=== PATIENT | female | born 1930 | race Caucasian/White ===

== ENCOUNTER 2019-09-19 07:15 | Inpatient (IN) | payer MEDICARE, OTHER ==
[~2019-09-19] VITALS: Ht 154.9 cm; Wt 70.0 kg
[2019-09-19] VITALS (12 sets, daily range): BP systolic 92–131; BP diastolic 52–71
--- NOTE | 2019-09-19 07:26 | NUR ---
[facility] DTR: [phone]
--- NOTE | 2019-09-19 07:27 | NUR ---
DR GALVAN AT THE BED SIDE
[2019-09-19] MEDS ORDERED: IV NS 0.9% 1,000 ML BAG IV ONE (07:30)
--- NOTE | 2019-09-19 07:35 | NUR ---
ASSUME PT CARE, RESTING IN BED. PT WAS BIBRA FROM HOME C/O CHEST PAIN SINCE 399 TODAY. SEEN BY ED PROVIDER MANDY. LAB DRAWN AND SENT. ON MONITOR.
[2019-09-19 07:41] LABS: BASOPHILS % (AUTO) 0.3 % (0.0-2.0); EOSINOPHILS % (AUTO) 1.2 % (0.0-6.0); HEMATOCRIT 22 % (33-45); HEMOGLOBIN 7.3 g/dL (11.5-14.8); LYMPHOCYTES # (AUTO) 1.1 /CMM (0.8-4.8); LYMPHOCYTES % (AUTO) 12.2 % (20.0-44.0); MEAN CORPUSCULAR HGB CONC 33 g/dl (31.0-36.0); MEAN CORPUSCULAR VOLUME 88 fL (82-100); MONOCYTES # (AUTO) 0.5 /CMM (0.1-1.30); MONOCYTES % (AUTO) 5.9 % (2.0-12.0); NEUTROPHILS # (AUTO) 7.2 /CMM (1.8-8.9); NEUTROPHILS % (AUTO) 80.4 % (43.0-81.0); PLATELET COUNT (AUTO) 248 /CMM (150-450); RED BLOOD CELL COUNT(AUTO) 2.52 MIL/uL (4.0-5.2); WHITE BLOOD COUNT (AUTO) 8.9 K/uL (4.3-11.0)
[2019-09-19 07:45] LABS: CALCIUM, SERUM 9.8 mg/dL (8.5-10.1); CARBON DIOXIDE 22 mmol/L (21-32); CHLORIDE 102 mmol/L (98-107); CREATININE 2.1 mg/dL (0.6-1.3); GLUCOSE 178 mg/dL (74-106); POTASSIUM 3.8 mmol/L (3.5-5.1); SODIUM SERUM 138 mmol/L (136-145); UREA NITROGEN, BLOOD 47 mg/dL (7-18)
[2019-09-19 07:56] LABS: ALANINE AMINOTRANSFERASE 12 U/L (12-78); ALBUMIN 3.5 g/dL (3.4-5.0); ALKALINE PHOSPHATASE 50 U/L (46-116); ASPARTATE AMINOTRANSFERASE 14 U/L (15-37); B-TYPE NATRIURETIC PEPTIDE 1453 PG/ML (0-125); BILIRUBIN,DIRECT 0.1 mg/dL (0.0-0.2); BILIRUBIN,TOTAL 0.2 mg/dL (0.2-1.0)
--- NOTE | 2019-09-19 08:10 | NUR ---
RADIOLOGY AT BEDSIDE FOR CHEST XRAY.
[2019-09-19] MEDS ORDERED: MORPHINE SULFATE INJ 2 MG/ML DISP.SYRIN ONE (08:15)
[2019-09-19] MEDS ORDERED: MORPHINE SULFATE INJ 2 MG/ML DISP.SYRIN IV ONE (08:30)
--- NOTE | 2019-09-19 08:35 | NUR ---
MOVE SHEET SUBMITTED AND CALLED FOR TELE BED AND EPIC CALLED.
[2019-09-19] MEDS ORDERED: TRAM50TA2 MT (08:46)
[2019-09-19] MEDS ORDERED: PANT40TA4 MT (08:46)
[2019-09-19] MEDS ORDERED: ISOS30TA6 MT (08:46)
[2019-09-19] MEDS ORDERED: DOCU250C21 MT (08:46)
[2019-09-19] MEDS ORDERED: LINA5TAB MT (08:46)
[2019-09-19] MEDS ORDERED: LOSA25TA27 MT (08:46)
[2019-09-19] MEDS ORDERED: BISA5TAB10 MT (08:46)
[2019-09-19] MEDS ORDERED: FERR325T6 MT (08:46)
[2019-09-19] MEDS ORDERED: ALEN70TA6 MT (08:46)
[2019-09-19] MEDS ORDERED: FLUT1DIS3 INH (08:46)
[2019-09-19] MEDS ORDERED: CALC-17 MT (08:46)
[2019-09-19] MEDS ORDERED: DIGO125T MT (08:46)
[2019-09-19] MEDS ORDERED: MEMA10TA56 MT (08:46)
[2019-09-19] MEDS ORDERED: ALPR0.5T8 MT (08:46)
[2019-09-19] MEDS ORDERED: FURO40TA5 MT (08:46)
[2019-09-19] MEDS ORDERED: SPIR25TA6 MT (08:46)
[2019-09-19] MEDS ORDERED: ATOR10TA MT (08:46)
[2019-09-19] MEDS ORDERED: DEXL60CA3 MT (08:46)
[2019-09-19] MEDS ORDERED: MEGE40TA5 MT (08:46)
[2019-09-19] MEDS ORDERED: CARV6.252 MT (08:46)
[2019-09-19] MEDS ORDERED: DULO30CA52 MT (08:46)
[2019-09-19] MEDS ORDERED: ASPI-1152 MT (08:46)
--- NOTE | 2019-09-19 08:52 | NUR ---
PT PROVIDED W/ PILLOW. APPEARS TO BE MORE COMFORTABLE. VITALS STABLE AND UPDATED.
--- NOTE | 2019-09-19 09:20 | NUR ---
PT SLEEPING, ON MONITOR W/ STABLE VITALS.
--- NOTE | 2019-09-19 10:21 | NUR ---
GOT BED 304-1
--- NOTE | 2019-09-19 11:03 | NUR ---
BEDSIDE REPORT GIVEN TO GASPER OSORIO. PT TRANSPORTED IN STABLE CONDITION.
--- NOTE | 2019-09-19 11:10 | NUR ---
Received patient via gurgarcia from ER
--- NOTE | 2019-09-19 11:30 | NUR ---
requested for Hebrew speaking hotel or motel room service supervisor, unable to collect info
--- NOTE | 2019-09-19 13:27 | NUR ---
patients granddaughter called, provided history of patient, (Cori [phone]) She is DNR/DNI Person to contact, and power of atty is her daughter Minal [phone]
[2019-09-19] MEDS ORDERED: ONDANSETRON HCL/PF 4 MG/2 ML VIAL IVP PRN (13:30)
[2019-09-19] MEDS ORDERED: Z GUARD REMEDY 2 OZ OINT TP PRN (13:30)
[2019-09-19] MEDS ORDERED: ACETAMINOPHEN 325 MG TABLET PO PRN (13:30)
[2019-09-19] MEDS ORDERED: HYDROCODONE/APAP 5/325MG 1 EACH TABLET PO PRN (13:30)
[2019-09-19] MEDS ORDERED: LORAZEPAM INJ 2 MG/ML VIAL IV PRN (16:00)
--- NOTE | 2019-09-19 16:15 | NUR ---
Lab called , informed about troponin level, DISTRIBUTION SUPERVISOR notified
--- NOTE | 2019-09-19 16:35 | NUR ---
Patient is screaming and sweating, saying she is dying, BP drops to 96/66 and O2 sat to 88% on 4L of O2
--- NOTE | 2019-09-19 17:17 | NUR ---
PATIENT TRANSFERRED TO [facility]-1 ICU OVERFLOW WITH GASPER OSORIO. VITALS SIGNS 131/63 HR 98 O2 97% ON 10L NON-REBREATHER, TEMP 97.9F. TELE MONITOR SINUS TACHY 90S-110S. PATIENT GIVEN TO DEVON KING AND CHARGE NURSE
--- NOTE | 2019-09-19 17:30 | NUR ---
gave report to DEVON Carrington for toni
--- NOTE | 2019-09-19 17:30 | NUR ---
RN OPENING NOTES RECEIVED PATIENT FROM [facility] NURSE. PATIENT IS VERY ANXIOUS AT THE MOMENT, A/O X3-4, CENTRAL AFRICAN SPEAKING ONLY. PATIENT IN PLACED ON NON REBREATHER MASK AT 15L, SATURATING WELL AT 95%. NO SIGNS OF RESPIRATORY DISTRESS NOTED. PLACED ON MONITOR FOR CONSTANT VITAL SIGNS MONITORING, INTERVAL SET TO 15MIN FOR BP CYCLE. VITAL SIGNS ARE STABLE AT THE MOMENT. THERE IS AN ORDER TO TRANSFUSE BLOOD, WILL OBTAIN CONSENT AND WAITING ON LAB TO PREPARE THE BLOOD. SAFETY IS MAINTAINED, CALL LIGHT WITHIN REACH, WILL CONTINUE TO MONITOR CLOSELY.
--- NOTE | 2019-09-19 17:50 | NUR ---
RN NOTE OBTAINED CONSENT FOR BLOOD TRANSFUSSION THROUGH TELEPHONE FROM DAUGHTER JESSICA. PATIENT WAS UNABLE TO SIGN DUE TO BEING VERY ANXIOUS. EXPLAINED THE PROCEDURE TO FAMILY AND PATIENT. BOTH AGREED. SAFETY MAINTAINED, CALL LIGHT WITHIN REACH, WILL CONTINUE TO MONITOR CLOSELY.
[2019-09-19] MEDS ORDERED: FUROSEMIDE 40 MG/4 ML VIAL IV ONE (18:00)
--- NOTE | 2019-09-19 18:31 | NUR ---
ASKED PHARMACY TO VERIFY LASIX. PENDING VERIFICATION PRIOR TO ADMINISTRATION.
--- NOTE | 2019-09-19 18:50 | NUR ---
HOLDING LOVENOX DUE TO PATIENT SBP UNDER 120. WILL ENDORSE TO PM NURSE Addendum: 09/19/19 at 1944 by KLARISSA CASTELAN RN HOLDING LASIX DUE TO PATIENT SBP UNDER 120. HOLDING PER DOSE ORDERED. WRONG MEDICATION CHARTED IN THE FIRST NOTE.
--- NOTE | 2019-09-19 19:20 | NUR ---
RN OPENING NOTES: RECEIVED PT A/OX3 IN BED RESTING COMFORTABLY. PATIENT ONLY SPEAKS ROMANSH. PATIENT IN NO S/SX OF ACUTE DISTRESS AT THIS TIME. NO SOB NOTED. PATIENT'S BREATHING IS EVEN AND UNLABORED. PATIENT IS ON 15 L OF OXYGEN VIA NON REBREATHER MASK; TOLERATING WELL AND SATURATING 100% UPON RECEIVED. PATIENT ON MONITORING READING SINUS RHYTHM HR IS @80S. NOTED IV SITE ON L HAND; NO S/S OF INFECTION BUT NOTED TO BE LEAKING. WILL FACILITATE CHANGE OF IV ACCESS. LINDSAY CATH IN PLACE, MODERATE URINE OUTPUT NOTED.SAFETY MEASURES HAVE BEEN PROVIDED AND IMPLEMENTED. PATIENT BED ALARM IS ON. HEAD OF BED ELEVATED. BED IS LOCKED, IN LOWEST POSITION AND SIDE RAILS UP. CALL LIGHT WITHIN REACH OF THE PATIENT. ISOLATION PRECAUTIONS IN PLACE. WILL CONTINUE TO MONITOR AND REASSESS FOR ANY CHANGES.
--- NOTE | 2019-09-19 20:00 | NUR ---
RN NOTES FACILITATED CHANGE OF IV ACCESS AND L HAND IV ACCESS HAS BEEN NOTED TO BE LEAKING AND NON PATENT. NEW IV LINE ON R HAND #20. PATIENT AND INTACT. RADIO EQUIPMENT INSTALLER MADE AWARE OF THIS.
--- NOTE | 2019-09-19 20:00 | NUR ---
RN NOTES LAB INFORMED RN THAT PT REFUSED BLOOD DRAW FOR TROPONIN. TRIED TO TALK TO PATIENT AND INFORMED RISK AND BENEFITS BUT STILL PATIENT REFUSED. EMERGENCY VETERINARIAN MADE INFORMED. WILL ALSO INFORM MD.
--- NOTE | 2019-09-19 20:10 | NUR ---
RN NOTES CALLED [facility] FOR [facility] TO INFORM ABOUT PT REFUSAL FOR BLOOD DRAW FOR TROPONIN. AWAITING FOR CALLBACK FROM [facility].
--- NOTE | 2019-09-19 20:38 | NUR ---
RN NOTES -CALLBACK RECEIVED FROM ONCALL DOCTORYAEL NP INFORMED HIM THAT PT REFUSED THE BLOOD DRAW FOR TROPONIN, HE ACKNOWLEDGED. ROUTE DELIVERY MANAGER MADE AWARE. -WAS ALSO ABLE TO SPEAK WITH PAT WEAVER AND INFORMED THE SAME. HE ACKNOWLEDGED.
[2019-09-19] MEDS: PANTOPRAZOLE 40 MG VIAL IV SCH (22:22)
[2019-09-20] VITALS (19 sets, daily range): BP systolic 94–154; BP diastolic 50–80
--- NOTE | 2019-09-20 01:00 | NUR ---
RN NOTES BLOOD TRANSFUSION ENDED AT 0100AM , NO BLOOD TRANSFUSION REACTION NOTED AND ALL VITAL SIGNS WNL. PT TOLERATED PROCEDURE AND STABLE.
[2019-09-20 06:05] LABS: APPEARANCE,URINE SL CLOUDY (CLEAR); BILIRUBIN,URINE NEGATIVE (NEGATIVE); BLOOD, URINE SMALL Ery/uL (NEGATIVE); COLOR,URINE YELLOW (YELLOW); KETONES,URINE NEGATIVE (NEGATIVE); LEUKOCYTE ESTERASE ,URINE SMALL (NEGATIVE); NITRITE, URINE POSITIVE (NEGATIVE); PROTEIN,URINE NEGATIVE (NEGATIVE); UGLUCOSE NEGATIVE (NEGATIVE); UROBILINOGEN,URINE 0.2 EU/dL (0.2)
[2019-09-20 06:10] LABS: BACTERIA,URINE Many /HPF (None Seen); SQUAMOUS EPITHELIAL CELL,UR Few /HPF (None Seen); WBC,URINE TOO NUMEROUS TO COUN /HPF (0-3)
[2019-09-20 06:37] LABS: BASOPHILS % (AUTO) 0.1 % (0.0-2.0); EOSINOPHILS % (AUTO) 0.3 % (0.0-6.0); HEMATOCRIT 26 % (33-45); HEMOGLOBIN 8.3 g/dL (11.5-14.8); LYMPHOCYTES # (AUTO) 1.5 /CMM (0.8-4.8); MEAN CORPUSCULAR HGB CONC 32 g/dl (31.0-36.0); MEAN CORPUSCULAR VOLUME 89 fL (82-100); MONOCYTES # (AUTO) 0.9 /CMM (0.1-1.30); MONOCYTES % (AUTO) 6.3 % (2.0-12.0); NEUTROPHILS # (AUTO) 11.5 /CMM (1.8-8.9); NEUTROPHILS % (AUTO) 82.3 % (43.0-81.0); PLATELET COUNT (AUTO) 244 /CMM (150-450); RED BLOOD CELL COUNT(AUTO) 2.94 MIL/uL (4.0-5.2); WHITE BLOOD COUNT (AUTO) 13.9 K/uL (4.3-11.0)
--- NOTE | 2019-09-20 06:41 | NUR ---
RN CLOSING NOTE: PATIENT REMAINS IN ROOM. NO SIGNS OF RESPIRATORY DISTRESS. SAFETY MEASURES IMPLEMENTED, BED IN LOWEST POSITION, LOCKED, SIDE RAILS UP, CALL LIGHT WITHIN REACH. ALL NEEDS AND ORDERS ADDRESSED DURING THE SHIFT. ALL DUE MEDS GIVEN ORDERED & SCHEDULED ; PATIENT TOLERATED WELL.PATIENT KEPT CLEAN AND COMFORTABLE WITHIN THE SHIFT. ENDORSED TO INCOMING SHIFT RN FOR CONTINUITY OF CARE.
[2019-09-20 06:48] LABS: ALANINE AMINOTRANSFERASE 33 U/L (12-78); ALBUMIN 3.3 g/dL (3.4-5.0); ALKALINE PHOSPHATASE 45 U/L (46-116); ASPARTATE AMINOTRANSFERASE 221 U/L (15-37); BILIRUBIN,TOTAL 0.3 mg/dL (0.2-1.0); CALCIUM, SERUM 8.4 mg/dL (8.5-10.1); CARBON DIOXIDE 22 mmol/L (21-32); CHLORIDE 105 mmol/L (98-107); CREATININE 1.4 mg/dL (0.6-1.3); GLUCOSE 132 mg/dL (74-106); MAGNESIUM 2.4 mg/dL (1.8-2.4); PHOSPHORUS 4.4 mg/dL (2.5-4.9); POTASSIUM 4.1 mmol/L (3.5-5.1); SODIUM SERUM 139 mmol/L (136-145); TOTAL PROTEIN, SERUM 6.8 g/dL (6.4-8.2); UREA NITROGEN, BLOOD 40 mg/dL (7-18)
--- NOTE | 2019-09-20 07:30 | NUR ---
RN OPENING NOTES RECEIVED PATIENT RESTING IN BED COMFORTABLY, AWAKE. PT IS AOX3, VERBAL, AND ON STRICT BED REST. SHE IS ON 15L OF OXYGEN VIA NON-REBREATHER, TOLERATING WELL SATING AT 100%. TELE MONITOR SHOWING SR. SKIN IS INTACT. IV SITE ON R HAND 20 G IS PATENT AND INTACT. SAFETY MEASURES HAVE BEEN IMPLEMENTED, CALL LIGHT IS WITHIN REACH, BED IS IN LOWEST AND LOCKED POSITION, SIDE RAILS UP X2, WILL CONTINUE TO MONITOR FOR ANY CHANGES.
--- NOTE | 2019-09-20 07:58 | NUR ---
RN NOTES TITRATED OXYGEN DOWN TO 8L VIA SIMPLE FACE MASK. PT SATING AT 100%, DENIES FEELING SOB AT THIS TIME. WILL CONTINUE TO MONITOR HOW SHE TOLERATES LOWER SUPPLEMENTAL O2
--- NOTE | 2019-09-20 08:20 | NUR ---
PLACED PT ON 5L O2 VIA NC WITH HUMIDIFIER KIT, PT SATING >95% WHILE EATING BREAKFAST. WILL CONT TO MONITOR
--- NOTE | 2019-09-20 09:14 | NUR ---
REPEAT TROPONIN LEVEL OF 84.991 RELAYED TO MD GRADY. NO NEW ORDERS AT THIS TIME, WILL CONTINUE TO MONITOR
[2019-09-20] MEDS: PANTOPRAZOLE 40 MG VIAL IV SCH ×2 (09:23→22:04)
[2019-09-20] MEDS: FUROSEMIDE 40 MG/4 ML VIAL IV SCH ×3 (09:23→16:42)
[2019-09-20 11:55] LABS: CHOLESTEROL 88 mg/dL (<200); HDL CHOLESTEROL 22 mg/dL (40-60); LDL 56 mg/dL (0-99); TRIGLYCERIDES 129 mg/dL (30-150)
--- NOTE | 2019-09-20 13:30 | NUR ---
RN NOTES SPOKE WITH JOLIE, PT DAUGHTER. UPDATED HER ON PLAN OF CARE. VERBALIZED UNDERSTANDING. WILL CONTINUE TO MONITOR
--- NOTE | 2019-09-20 17:30 | NUR ---
TELE/BOOKMOBILE CLERK/ASSESSMENT NOTES Received patient at 322-1 by bed along with belongings. Patient is A&O x 3, Macedonian speaking. Denies pain and discomfort at this time. Vital signs taken, remain stable. On 4L oxygen via NC, breathing even and non-labored. No SOB or respiratory distress noted. On tele monitor reading SR HR 78. No cardiac distress noted. Skin intact, no impairments noted. IV access noted on R hand #20 gauge, patent and intact, and flushing well. Sensation from all peripheral extremities noted. Fall precautions maintained. Will continue to monitor for any changes in condition. Addendum: 09/20/19 at 1806 by BEBETO CAST RN Moreno in place, draining yellow urine well.
--- NOTE | 2019-09-20 17:44 | NUR ---
RN NOTES PT HAS BEEN TRANSFERRED TO ROOM 322-1, TRANSFER REPORT GIVEN TO BEBETO OSORIO FOR JOSIE. PT FAMILY (JOLIE) MADE AWARE OF TRANSFER
--- NOTE | 2019-09-20 19:28 | NUR ---
TELE/RN CLOSING NOTES Patient resting in bed, A&O x 3. On 4L oxygen via NC, breathing even and non-labored. No SOB or respiratory distress noted. On tele monitor reading SR HR 80. No cardiac distress noted. No complaints of pain and discomfort at this time. IV access noted on R hand #20 gauge, patent and intact, and flushing well. Sensation from all peripheral extremities noted. Moreno catheter in place, draining yellow urine well, 100 cc out. Fall precautions maintained. Will endorse to fast food shift supervisor nurse.
--- NOTE | 2019-09-20 19:48 | NUR ---
RN OPENING NOTES RECEIVED PATIENT RESTING IN BED COMFORTABLY, AWAKE. PT IS AOX3, VERBAL, AND ON STRICT BED REST. TELE MONITOR SHOWING SR 70s - 80s. SKIN IS INTACT. IV SITE ON R HAND 20 G IS PATENT AND INTACT. SAFETY MEASURES HAVE BEEN IMPLEMENTED, CALL LIGHT IS WITHIN EASY REACH, BED IS IN LOWEST AND LOCKED POSITION, SIDE RAILS UP X2, WILL CONTINUE TO MONITOR ACCORDINGLY
[2019-09-21] VITALS (7 sets, daily range): BP systolic 102–125; BP diastolic 57–68
--- NOTE | 2019-09-21 06:38 | NUR ---
RN NOTES ALL NEEDS ATTENDED AND MET ABLE TO REST AND SLEPT AT INTERVALS, DENIES ANY PAIN AT THIS TIME, EASILY AROUSABLE. KEEP CLEAN WARM DRY AND COMFORTABLE. CALL LIGHT WITH IN EASY REACH, SAFETY MEASURES IN PLACE. WILL ENDORSE TO AM NURSE FOR CONTINUITY OF CARE.
[2019-09-21 07:49] LABS: ALBUMIN 3.4 g/dL (3.4-5.0); BILIRUBIN,TOTAL 0.5 mg/dL (0.2-1.0); CALCIUM, SERUM 8.7 mg/dL (8.5-10.1); CREATININE 1.2 mg/dL (0.6-1.3); MAGNESIUM 2.4 mg/dL (1.8-2.4); PHOSPHORUS 2.9 mg/dL (2.5-4.9); POTASSIUM 3.3 mmol/L (3.5-5.1); TOTAL PROTEIN, SERUM 7.2 g/dL (6.4-8.2)
[2019-09-21 07:54] LABS: BASOPHILS % (AUTO) 0.4 % (0.0-2.0); EOSINOPHILS % (AUTO) 1.3 % (0.0-6.0); HEMATOCRIT 27 % (33-45); HEMOGLOBIN 8.8 g/dL (11.5-14.8); LYMPHOCYTES # (AUTO) 1.6 /CMM (0.8-4.8); LYMPHOCYTES % (AUTO) 15.8 % (20.0-44.0); MEAN CORPUSCULAR HGB CONC 32 g/dl (31.0-36.0); MEAN CORPUSCULAR VOLUME 88 fL (82-100); MONOCYTES # (AUTO) 0.9 /CMM (0.1-1.30); MONOCYTES % (AUTO) 8.7 % (2.0-12.0); NEUTROPHILS # (AUTO) 7.3 /CMM (1.8-8.9); NEUTROPHILS % (AUTO) 73.8 % (43.0-81.0); PLATELET COUNT (AUTO) 257 /CMM (150-450); WHITE BLOOD COUNT (AUTO) 9.8 K/uL (4.3-11.0)
--- NOTE | 2019-09-21 08:00 | NUR ---
PAINTER ROUGH OPENING NOTES RECEIVED PATIENT AMBULATING OUT OF BED HEADING TO THE TOILET HOLDING ON TO THE PAINTER. HIGH FALL RISK.EXPLAINED WITH AN RN FREYA LATHE SPOTTER TO CALL FOR ASSISTANCE AND USE THE CALL LIGHT. PT IS AOX3, VERBAL, ON TELE MONITOR SHOWING SR 70s - 80s. SKIN IS INTACT. IV SITE ON R HAND 20 G IS PATENT AND INTACT. WITH LINDSAY CATHETER INTACT DRAINING SLIGHTLY DARK YELLOW URINE. PT MADE LARGE BROWNISH BLACK SOFT BM IN THE TOILET. ASSISTED ANTWON TO BED AFTER GOOD PERICARE RENDERED. ABLE TO MAKE SMALL SLOW STEPS. NO SOB NOTED AND DENIES SOB WELL-ON ROOM AIR AND DURING AMBULATION. O2 SAT 100%. SAFETY MEASURES HAVE BEEN IMPLEMENTED, CALL LIGHT IS WITHIN EASY REACH, BED IS IN LOWEST AND LOCKED POSITION, SIDE RAILS UP X2, WILL CONTINUE TO MONITOR ACCORDINGLY
[2019-09-21] MEDS: PANTOPRAZOLE 40 MG VIAL IV SCH ×2 (08:19→20:08)
[2019-09-21] MEDS ORDERED: POTASSIUM CHLORIDE 20 MEQ TAB.PRT.SR PO ONE (09:30)
[2019-09-21 16:52] LABS: OCCULT BLOOD STOOL POSITIVE (NEGATIVE)
[2019-09-21] MEDS: DOCUSATE SODIUM 100 MG CAPSULE PO SCH (17:00)
--- NOTE | 2019-09-21 17:14 | NUR ---
PT GOT SO IRRITATED WITH HER LINDSAY CATHETER AND WANTS IT REMOVED INSPITE OF EXPLAINING ITS RISKS AND BENEFITS.PT KEEPS AMBULATING WITH ASSIST TO THE TOILET 3X DURING THE SHIFT. HELD COLACE DUE TO HAVING LOOSE SOFT STOOL 2X DURING THE SHIFT.REMOVED LINDSAY CATHETER WITH 450 ML CLEAR YELLOW URINE OUTPUT AND PT FELT SO RELIEVED.
--- NOTE | 2019-09-21 20:00 | NUR ---
ELECTRICAL LOGGING OPERATOR OPENING NOTE: Received patient in bed awake and alert. Patient denies pain or discomfort. No signs of distress noted. Patient on room air, O2 sat 97%. No SOB. Breathing unlabored and equal. External monitoring noted. Patient is sinus rhythm. IV access on right forearm noted; 22 gauge. It is patent, no redness, or infiltration. Safety precaution in place; bed is locked, side rails x2 are up, bed alarm is on, and call light is within reach. Will continue plan of care.
--- NOTE | 2019-09-21 20:30 | NUR ---
Noted patient not on Hayden Catheter. Asked patient if it would be okay to insert hayden catheter. Patient refused. Educated patient on risk and benefits but patient still refused. Patient ambulates to the restroom with assistance. Will use hat to measure output.
[2019-09-22] VITALS: BP 117/65
[2019-09-22 04:00] VITALS: BP 119/64
--- NOTE | 2019-09-22 07:00 | NUR ---
DISTRICT MANAGER MAJOR ACCOUNTS SALES OPENING NOTE: Patient in bed sleeping comfortably. Patient shows no signs of pain or discomfort. No signs of distress noted. No SOB. Breathing unlabored and equal. External monitoring sinus rhythm. Safety precaution in place; bed is locked, side rails x2 are up, bed alarm is on, and call light is within reach. Will endorse to next shift.
[2019-09-22 08:00] VITALS: BP 118/67
[2019-09-22 08:03] LABS: BASOPHILS # (AUTO) 0.1 /CMM (0.0-0.2); BASOPHILS % (AUTO) 0.7 % (0.0-2.0); HEMATOCRIT 27 % (33-45); HEMOGLOBIN 8.7 g/dL (11.5-14.8); LYMPHOCYTES # (AUTO) 1.5 /CMM (0.8-4.8); LYMPHOCYTES % (AUTO) 19.3 % (20.0-44.0); MEAN CORPUSCULAR HGB CONC 32 g/dl (31.0-36.0); MEAN CORPUSCULAR VOLUME 88 fL (82-100); MONOCYTES # (AUTO) 0.7 /CMM (0.1-1.30); MONOCYTES % (AUTO) 9.1 % (2.0-12.0); NEUTROPHILS # (AUTO) 5.2 /CMM (1.8-8.9); NEUTROPHILS % (AUTO) 68.9 % (43.0-81.0); PLATELET COUNT (AUTO) 266 /CMM (150-450); RED BLOOD CELL COUNT(AUTO) 3.03 MIL/uL (4.0-5.2); WHITE BLOOD COUNT (AUTO) 7.5 K/uL (4.3-11.0)
[2019-09-22] MEDS: DOCUSATE SODIUM 100 MG CAPSULE PO SCH ×2 (08:27→17:18)
[2019-09-22] MEDS: PANTOPRAZOLE 40 MG VIAL IV SCH ×2 (08:27→21:13)
[2019-09-22 09:24] LABS: CALCIUM, SERUM 8.2 mg/dL (8.5-10.1); PHOSPHORUS 2.3 mg/dL (2.5-4.9); POTASSIUM 3.7 mmol/L (3.5-5.1)
[2019-09-22] MEDS ORDERED: NEUTRA PHOS 1 POWD.PACKET PO ONE (13:00)
[2019-09-22] MEDS: SOD FERRIC GLUC 125 MG in IV NS 0.9% 100 ML IV SCH (13:53)
[2019-09-22 16:00] VITALS: BP 126/69
--- NOTE | 2019-09-22 19:05 | NUR ---
RN NOTES: RECEIVED AWAKE ON BED ON SEMI FOWLERS POSITION,A/OX2,TONGAN SPEAKING ONLY, ABLE TO GO AMBULATE TO THE BATHROOM USING FWW WITH ASSIST,NON LABORED BREATHING ON ROOM AIR SPO2-98%, NO COMPLAINTS OF PAIN AND DISCOMFORT, ORIENTED TO UNIT AND STAFF, PER MORNING/RN FOR ENDOSCOPY IN THE MORNING NO DEFINITE TIME, ALL CONSENTS WERE SIGNED,FOR NPO AT 12 MN, RFA G#22 PATENT, ORIENTED TO UNIT AND STAFF, FALL,SAFETY AND ASPIRATION PRECAUTION OBSERVED, BED LOW AND LOCKED, CALL LIGHT WITHIN EASY REACH.
[2019-09-22 20:00] VITALS: BP 121/69
--- NOTE | 2019-09-22 23:04 | NUR ---
RN NOTES: -REMINDED TO BE NPO AT 12 MN FOR ENDOSCOPY TOMORROW.KEPT CALL LIGHT WITHIN EASY REACH.
[2019-09-23 06:53] LABS: CALCIUM, SERUM 8.3 mg/dL (8.5-10.1); MAGNESIUM 2.1 mg/dL (1.8-2.4); PHOSPHORUS 3.2 mg/dL (2.5-4.9); POTASSIUM 3.1 mmol/L (3.5-5.1)
--- NOTE | 2019-09-23 06:53 | NUR ---
RN NOTES: NO COMPLAINTS IN THE NIGHT, NO PAIN OR DISCOMFORT, NEEDS ANTICIPATED AND ATTENDED, ABLE TO SLEEP WELL, KEPT NPO, PRE-OP CHECKLIST STARTED; FOR BLOOD TEST THIS MORNING, TO F/U TIME OF EGD PROCEDURE.REMAINS AFEBRILE, NO SIGN OF BLEEDING. NON LABORED BREATHING. ENDORSED FOR CONTINUITY OF CARE.
[2019-09-23 06:54] LABS: BASOPHILS # (AUTO) 0.1 /CMM (0.0-0.2); BASOPHILS % (AUTO) 0.8 % (0.0-2.0); EOSINOPHILS % (AUTO) 4.6 % (0.0-6.0); HEMATOCRIT 26 % (33-45); HEMOGLOBIN 8.4 g/dL (11.5-14.8); LYMPHOCYTES # (AUTO) 1.2 /CMM (0.8-4.8); LYMPHOCYTES % (AUTO) 16.8 % (20.0-44.0); MEAN CORPUSCULAR HGB CONC 33 g/dl (31.0-36.0); MEAN CORPUSCULAR VOLUME 88 fL (82-100); MONOCYTES # (AUTO) 0.6 /CMM (0.1-1.30); MONOCYTES % (AUTO) 8.7 % (2.0-12.0); NEUTROPHILS # (AUTO) 4.9 /CMM (1.8-8.9); NEUTROPHILS % (AUTO) 69.1 % (43.0-81.0); PLATELET COUNT (AUTO) 254 /CMM (150-450); RED BLOOD CELL COUNT(AUTO) 2.92 MIL/uL (4.0-5.2); WHITE BLOOD COUNT (AUTO) 7.1 K/uL (4.3-11.0)
--- NOTE | 2019-09-23 07:30 | NUR ---
RN Opening note Received patient in bed, non verbal, able to responds physical stimuli. Denied pain or distress, skin is warm to touch clean/dry, p/s peg on 09/21, intact G tube site, no active bleeding. Respiratory even and unlabored in room air, no distress observed. Keep bed in locked with elevated HOB for secure airway and aspiration precaution. Call light within reach, will continue to monitor
[2019-09-23 08:00] VITALS: BP 99/53
[2019-09-23] MEDS: DOCUSATE SODIUM 100 MG CAPSULE PO SCH ×2 (08:34→16:21)
[2019-09-23] MEDS: PANTOPRAZOLE 40 MG VIAL IV SCH ×2 (08:34→21:13)
[2019-09-23] MEDS: POTASSIUM CL. PREMIX PERIPHER. 50 ML IV SCH ×4 (10:57→13:34)
--- NOTE | 2019-09-23 13:30 | NUR ---
Patient cancelled EGD due to troponin resul was high. Dr. Wall made aware, will resume diet.
--- NOTE | 2019-09-23 15:00 | NUR ---
Patient has potassium IV order x 4 bags but c/o IV site burning pain, obtained potassium [address] Wall, will hold rest of potassium IV.
[2019-09-23] MEDS ORDERED: POTASSIUM CHLORIDE 20 MEQ TAB.PRT.SR PO ONE (15:30)
[2019-09-23 16:00] VITALS: BP 106/61
[2019-09-23] MEDS: SOD FERRIC GLUC 125 MG in IV NS 0.9% 100 ML IV SCH (16:20)
--- NOTE | 2019-09-23 18:30 | NUR ---
RN Closing note Patient in bed, finished dinner plate. Does no c/o pain or distress, resumed diet, skin is warm to touch, kept clean/dry, intact new IV site. Respiratory even and unlabored in kenny air. Keep bed in locked with elevated HOB for ensure airway and aspiration precaution. Call light within reach, will endorse caustic cresylate shift superintendent.
--- NOTE | 2019-09-23 19:05 | NUR ---
rn ms opening notes received patient in bed awake alert and oriented x2, respirations even and unlabored with equal rise and fall of chest, denies any pain or discomfort at this time, iv site to left wrist #22g intact and patent , no redness, no infiltration present, on clear liquid diet, oriented to staff and call light and kept within reach, safety precautions in place, low bed and locked, bed alarm in place, assisted to bed side commode and back to bed, repositioned,all needs met at this time, will continue to monitor and attend to needs.
[2019-09-23 20:00] VITALS: BP 104/50
--- NOTE | 2019-09-24 06:34 | NUR ---
rn ms closing notes patient in bed sleeping easily arousable , alert and oriented x2, respirations even and unlabored with equal rise and fall of chest, denies any pain or discomfort at this time, able to make needs known, iv site to left wrist #22g intact and patent , no redness, no infiltration present, on clear liquid diet, call light kept within reach, safety precautions in place, low bed and locked, bed alarm in place, assisted to bed side commode and back to bed, repositioned,all needs met at this time, will continue to monitor and attend to needs and will endorse to next shift.
--- NOTE | 2019-09-24 07:30 | NUR ---
RN OPEN NOTES PATIENT IS A/O X 1. CALM AND COOPERATIVE WITH NO SIGNS OF DISTRESS ON 4L NASAL CANNULA. NO COMPLAINTS OF PAIN AT THE MOMENT. IV L WRIST #22G. SAFETY MEASURES ARE APPLIED, BED IS IN LOWEST LOCKED POSITION WITH SIDE RAILS UP X2 FOR SAFETY. CALL LIGHT IS WITHIN REACH. WILL CONTINUE TO MONITOR.
[2019-09-24 07:52] LABS: CALCIUM, SERUM 8.5 mg/dL (8.5-10.1); CREATININE 1.2 mg/dL (0.6-1.3); POTASSIUM 3.6 mmol/L (3.5-5.1)
[2019-09-24 08:01] VITALS: BP_SYST 100; BP_SYST 116; BP_SYST 128; BP_DIAS 48; BP_DIAS 68
[2019-09-24] MEDS: DOCUSATE SODIUM 100 MG CAPSULE PO SCH ×2 (08:52→17:21)
[2019-09-24] MEDS: PANTOPRAZOLE 40 MG VIAL IV SCH ×2 (08:52→20:16)
[2019-09-24] MEDS ORDERED: NITROGLYCERIN 0.4 MG/TAB BOTTLE SL ONE (11:00)
[2019-09-24] MEDS ORDERED: IOHEXOL-350 100 ML VIAL IV ONE (11:51)
[2019-09-24] MEDS ORDERED: IV NS 0.9% 250 ML IV ONE (11:51)
[2019-09-24] MEDS ORDERED: METOPROLOL TARTRATE INJ 5 MG/5 ML AMPUL ONE (12:08)
[2019-09-24] MEDS: METOPROLOL TARTRATE INJ 5 MG/5 ML AMPUL IVP PRN ×3 (12:37→12:47)
[2019-09-24] MEDS ORDERED: CEFTRIAXONE 1 G in IV D5W 50 ML IV SCH (15:00)
--- NOTE | 2019-09-24 15:00 | NUR ---
RN NOTES DR. WEAVER ORDERED ADDITIONAL SUPPLEMENTS ENSURE CLEAR TID. ORDERS NOTED AND CARRIED OUT.
[2019-09-24] MEDS: SOD FERRIC GLUC 125 MG in IV NS 0.9% 100 ML IV SCH (15:32)
[2019-09-24 16:21] VITALS: BP 98/54
--- NOTE | 2019-09-24 19:30 | NUR ---
RN CLOSING NOTES PATIENT AWAKE IN BED AT THIS TIME. PATIENT REMAINED STABLE THROUGH OUT SHIFT. PATIENT KEPT CLEAN AND DRY. ALL NEEDS , CARE , TREATMENT AND MEDICATIONS ADMINISTERED ANTICIPATED PER ORDER. SAFETY MEASURES ARE APPLIED, BED IS IN LOWEST LOCKED POSITION WITH SIDE RAILS UP X2 FOR SAFETY. CALL LIGHT IS WITHIN REACH. WILL ENDORSE TO THE MANAGER AUTOMOTIVE NURSE FOR CONTINUITY OF CARE.
[2019-09-24 20:00] VITALS: BP 90/50
--- NOTE | 2019-09-24 20:00 | NUR ---
MS RN OPENING NOTE: Patient in bed awake and alert, watching TV. Patient is in no sing of distress. Patient denies pain or discomfort. On Oxygen 4L nasal canula. Patient tolerating oxygen. No SOB, breathing equal and unlabored at this time. Safety precaution in place; bed locked, alarm on, side rails x2 are up, and call light is within reach. Will continue plan of care.
[2019-09-24 20:08] VITALS: BP 90/50
--- NOTE | 2019-09-25 00:30 | NUR ---
MS RN NOTE: Found patient with cold sweat and SOB. O2 Sat 88 at 2L. Increased O2 to 5L. O2 sat went up to 89-92. Patient still had difficuly breathing. RT increased O2 to 15L on non-rebreather mask. O2 Sat above 95%. Notified MD. Per MD, order stat ABG. Notified MD of ABG results and was told that patient needed to be on bipap. RT brought bipap to room. Now patient is resting comfortably with O2 sat at 100%. No SOB/ No S/S of distress noted. Charge nurse is at the bedside.
[2019-09-25] MEDS ORDERED: BUMETANIDE INJ 0.25 MG/ML VIAL IV STA (01:18)
[2019-09-25] MEDS ORDERED: BUMETANIDE INJ 8 MG in IV NS 0.9% 48 ML IV STA (01:18)
[2019-09-25] MEDS ORDERED: BUMETANIDE INJ 0.25 MG/ML VIAL ONE ×2 (01:46→01:58)
[2019-09-25 03:00] VITALS: BP 112/57
[2019-09-25 03:56] VITALS: BP 112/57
--- NOTE | 2019-09-25 04:00 | NUR ---
MS RN NOTE: Patient removed bipap. Refused for me to put it back on. Educated and explained risk and benefits. Patient still refused.
--- NOTE | 2019-09-25 04:22 | NUR ---
MS RN NOTE: Notified doctor we only had quantity of 4 Bumex Inj 1mg/mL. MD order 1mg/4ml 4MG in NS 0.9% 24ML. Total 40mL. Read order back and carried out.
[2019-09-25] MEDS ORDERED: BUMETANIDE INJ 4 MG in IV NS 0.9% 24 ML IV ONE (04:30)
--- NOTE | 2019-09-25 04:50 | NUR ---
MS RN NOTE: Patient allowed me to put bipap back on.
--- NOTE | 2019-09-25 05:00 | NUR ---
MS RN NOTE: Patient removed bipap. Refused for me to put it back on. Educated and explained risk and benefits. Patient still refused.
--- NOTE | 2019-09-25 05:03 | NUR ---
MS RN NOTE: Put patient on 5L nasal canula. O2 sat 94%. Will continue to monitor.
[2019-09-25 06:33] LABS: ABG BASE EXCESS -12.7 mmol/L; ABG OXYGEN SATURATION 98.7 % (92.0-98.5); ABG PCO2 48.4 mmHg (35.0-45.0); ABG PH 7.134 (7.350-7.450); AaDO2 491.6 mmHg; COHb 0.3 % (0.5-1.5); MetHb 0.1 % (0.0-1.5); O2Hb 98.3 % (94.0-97.0); SITE, ABG Right Radial
--- NOTE | 2019-09-25 06:53 | NUR ---
MS RN OPENING NOTE: Patient in bed awake and alert. Patient is in no sing of distress at this time. On Oxygen 4L nasal canula. Patient tolerating oxygen. No SOB, breathing equal and unlabored at this time. Safety precaution in place; bed locked, alarm on, side rails x2 are up, and call light is within reach. Will endorse to next shift.
[2019-09-25 08:00] VITALS: BP 106/65
--- NOTE | 2019-09-25 08:00 | NUR ---
RN NOTES RECEIVED PATIENT IN THE BED A/O X1/2 WITH CONFUSION. PATIENT MAURITANIAN SPEAKER, HAS NO ACUTE RESPIRATORY DISTRESS, V/S STABLE, PATIENT TOLERATED BREAKFAST WELL. USING BEDSIDE COMMODE. IV ACCESS ON LEFT WRIST INTACT. ADMINISTERED SCHEDULED MEDICATION. CALL LIGHT WITHIN TO REACH. WAS COMPLAINING OF PAIN BILATERAL LOWER EXTREMITIES.
[2019-09-25 08:23] LABS: BASOPHILS % (AUTO) 0.2 % (0.0-2.0); EOSINOPHILS % (AUTO) 1.1 % (0.0-6.0); HEMATOCRIT 31 % (33-45); HEMOGLOBIN 9.6 g/dL (11.5-14.8); LYMPHOCYTES # (AUTO) 1.1 /CMM (0.8-4.8); LYMPHOCYTES % (AUTO) 11.3 % (20.0-44.0); MEAN CORPUSCULAR HGB CONC 31 g/dl (31.0-36.0); MEAN CORPUSCULAR VOLUME 90 fL (82-100); MONOCYTES # (AUTO) 0.6 /CMM (0.1-1.30); MONOCYTES % (AUTO) 5.9 % (2.0-12.0); NEUTROPHILS # (AUTO) 7.9 /CMM (1.8-8.9); NEUTROPHILS % (AUTO) 81.5 % (43.0-81.0); PLATELET COUNT (AUTO) 295 /CMM (150-450); RED BLOOD CELL COUNT(AUTO) 3.43 MIL/uL (4.0-5.2); WHITE BLOOD COUNT (AUTO) 9.6 K/uL (4.3-11.0)
[2019-09-25 08:31] LABS: CALCIUM, SERUM 8.8 mg/dL (8.5-10.1); CREATININE 1.2 mg/dL (0.6-1.3); MAGNESIUM 2.1 mg/dL (1.8-2.4); PHOSPHORUS 4.1 mg/dL (2.5-4.9)
--- NOTE | 2019-09-25 08:53 | NUR ---
RN NOTES RT WITH THE PATIENT FOR BLOOD GAS,
[2019-09-25] MEDS: ENSURE ENLIVE 237 ML LIQUID (VANILLA) PO SCH ×3 (08:55→16:47)
--- NOTE | 2019-09-25 09:15 | NUR ---
RN NOTES BLOOD GAS RESULT GET WNL. PATIENT HAS NO ACUTE RESPIRATORY DISTRESS.
[2019-09-25] MEDS: DOCUSATE SODIUM 100 MG CAPSULE PO SCH ×2 (10:35→16:48)
[2019-09-25] MEDS: PANTOPRAZOLE 40 MG VIAL IV SCH ×2 (10:36→20:39)
[2019-09-25] MEDS: FUROSEMIDE 40 MG/4 ML VIAL IV SCH ×3 (10:37→16:48)
--- NOTE | 2019-09-25 12:00 | NUR ---
RN NOTES SEEN PATIENT BY HOSPITALIST NEW ORDER EGD, PATIENT DNR/DRI, WILL FOLLOW FAMILY FOR PROCEDURE CONSENT.
[2019-09-25] MEDS ORDERED: CEFEPIME 1 GM in IV D5W 50 ML IV SCH (14:00)
[2019-09-25 14:04] LABS: ABG BASE EXCESS -6.1 mmol/L; ABG OXYGEN SATURATION 97.6 % (92.0-98.5); ABG PCO2 24.4 mmHg (35.0-45.0); ABG PO2 98.9 mmHg (75.0-100.0); COHb 0.1 % (0.5-1.5); MetHb 0.3 % (0.0-1.5); O2Hb 97.2 % (94.0-97.0); SITE, ABG Right Brachial
[2019-09-25] MEDS: LEVOFLOXACIN (500MG) 500 MG TABLET PO SCH (15:19)
[2019-09-25] MEDS: SOD FERRIC GLUC 125 MG in IV NS 0.9% 100 ML IV SCH (15:20)
[2019-09-25 16:00] VITALS: BP 110/65
[2019-09-25] MEDS: CEFEPIME 2 GM in IV D5W 100 ML IV SCH (16:46)
--- NOTE | 2019-09-25 18:30 | NUR ---
rn notes patient in th bed stable refused pain, on o2-2l nc, no sob at this time. administered scheduled medication, v/s stable. call light within to reach. endorsed oncoming nurse follow plan of care.
--- NOTE | 2019-09-25 19:30 | NUR ---
MS RN NOTES PATIENT IN BED, AWAKE, ALERT AND ORIENTED X 1-2. BREATHING EVEN AND UNLABORED ON 4L NC. SHOWS NO SIGNS OF ACUTE RESPIRATORY DISTRESS, NO ACUTE PAIN. IV ON L WRIST 22G ITS CLEAN DRY AND INTACT. SHOWS NO SIGNS INFILTRATION, NO REDNESS. SAFETY PRECAUTIONS IN PLACE. BED IN LOWEST POSITION, LOCKED, AND CALL LIGHT KEPT WITHIN REACH. WILL CONTINUE TO MONITOR.
--- NOTE | 2019-09-25 19:50 | NUR ---
MS RN NOTES DR. REED SAW PT IN EVENING. NO ORDERS FOR EGD. PER PREVIOUS CONSULTATION ON 09/22. 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 HIGH TROPONIN LEVEL WITH NON-ST ELEVATION CO, RECOMMEND HOLDING OFF ANY ENDOSCOPIC PROCEDURE." WILL CONTINUE TO MONITOR.
[2019-09-25 20:00] VITALS: BP 96/58
--- NOTE | 2019-09-26 06:35 | NUR ---
MS RN NOTES PATIENT IN BED, ASLEEP ALERT AND ORIENTED X 1-2. BREATHING EVEN AND UNLABORED ON 4L NC. SHOWS NO SIGNS OF ACUTE RESPIRATORY DISTRESS, NO ACUTE PAIN. IV ON L WRIST 22G ITS CLEAN DRY AND INTACT. SHOWS NO SIGNS INFILTRATION, NO REDNESS. ALL DUE MEDICATIONS GIVEN. SAFETY PRECAUTIONS IN PLACE. BED IN LOWEST POSITION, LOCKED, AND CALL LIGHT KEPT WITHIN REACH. WILL ENDORSE TO ONCOMING NURSE.
--- NOTE | 2019-09-26 07:47 | NUR ---
MS RN NOTES PATIENT RECEIVED IN BED SLEEPING, EASILY AWAKEN BY LIGHT TOUCH AND NAME. ALERT AND ORIENTED X 1-2, HEBREW/ NEPALESE SPEAKING. ON NASAL CANNULA, 4L, TOLERATING OXYGEN WITH NO SIGNS OF RESPIRATORY DISTRESS, WITH EVEN NON-LABORED BREATHING, AND NO SOB NOTED. PATIENT PRESENTS NO SIGNS OF PAIN OR DISCOMFORT. PATIENT SKIN WARM AND DRY TO TOUCH. IV ACCESS INTACT AND PATENT. SAFETY PRECAUTIONS IN PLACE WITH BED IN THE LOWEST POSITION, BED LOCKED, BILATERAL SIDE RAILS UP, AND CALL LIGHT WITHIN EASY REACH OF THE PATIENT. WILL CONTINUE TO MONITOR PATIENT.
[2019-09-26 08:00] VITALS: BP 91/50
[2019-09-26 08:09] LABS: BASOPHILS # (AUTO) 0.1 /CMM (0.0-0.2); BASOPHILS % (AUTO) 0.7 % (0.0-2.0); EOSINOPHILS % (AUTO) 4.8 % (0.0-6.0); HEMATOCRIT 28 % (33-45); LYMPHOCYTES # (AUTO) 1.1 /CMM (0.8-4.8); LYMPHOCYTES % (AUTO) 15.4 % (20.0-44.0); MEAN CORPUSCULAR HGB CONC 32 g/dl (31.0-36.0); MEAN CORPUSCULAR VOLUME 89 fL (82-100); MONOCYTES # (AUTO) 0.6 /CMM (0.1-1.30); MONOCYTES % (AUTO) 8.8 % (2.0-12.0); NEUTROPHILS # (AUTO) 5.1 /CMM (1.8-8.9); NEUTROPHILS % (AUTO) 70.3 % (43.0-81.0); PLATELET COUNT (AUTO) 268 /CMM (150-450); RED BLOOD CELL COUNT(AUTO) 3.17 MIL/uL (4.0-5.2); WHITE BLOOD COUNT (AUTO) 7.2 K/uL (4.3-11.0)
[2019-09-26 08:12] LABS: ALBUMIN 2.9 g/dL (3.4-5.0); BILIRUBIN,TOTAL 0.5 mg/dL (0.2-1.0); CALCIUM, SERUM 8.8 mg/dL (8.5-10.1); CREATININE 1.3 mg/dL (0.6-1.3); MAGNESIUM 1.7 mg/dL (1.8-2.4); PHOSPHORUS 4.5 mg/dL (2.5-4.9); POTASSIUM 3.2 mmol/L (3.5-5.1); TOTAL PROTEIN, SERUM 6.7 g/dL (6.4-8.2)
[2019-09-26] MEDS: PANTOPRAZOLE 40 MG VIAL IV SCH ×2 (09:01→20:37)
[2019-09-26] MEDS: ENSURE ENLIVE 237 ML LIQUID (VANILLA) PO SCH ×2 (09:01→13:11)
[2019-09-26] MEDS: DOCUSATE SODIUM 100 MG CAPSULE PO SCH ×2 (09:01→16:01)
--- NOTE | 2019-09-26 09:55 | NUR ---
MS RN NOTES SPOKE WITH POLI GUTIÉRREZ NP, AWAITING FOR CASE MANAGEMENT TO FOLLOW UP WITH FAMILY REGARDING PLAN OF CARE. POSSIBLE DIETARY CHANGE/ADVANCING DIET;PER POLI DE NP, OKAY TO GIVE ENSURE TO PATIENT. WILL CONTINUE TO MONITOR PATIENT.
[2019-09-26] MEDS: POTASSIUM CHLORIDE 20 MEQ TAB.PRT.SR PO SCH ×3 (10:24→12:43)
[2019-09-26] MEDS: Magnesium 1GM/D5W 100ML PREMIX 100 ML IV SCH ×2 (10:38→11:44)
[2019-09-26] MEDS: SOD FERRIC GLUC 125 MG in IV NS 0.9% 100 ML IV SCH (14:19)
[2019-09-26] MEDS: LEVOFLOXACIN (500MG) 500 MG TABLET PO SCH (15:57)
[2019-09-26] MEDS: CEFEPIME 2 GM in IV D5W 100 ML IV SCH (15:57)
[2019-09-26 16:00] VITALS: BP 114/67
--- NOTE | 2019-09-26 19:13 | NUR ---
MS RN NOTES PATIENT IN BED RESTING COMFORTABLY WATCHING TV. ALERT AND ORIENTED X 2, BELARUSIAN/ BERMUDIAN SPEAKING. ON NASAL CANNULA, 4L, TOLERATING OXYGEN WITH NO SIGNS OF RESPIRATORY DISTRESS, WITH EVEN NON-LABORED BREATHING, AND NO SOB NOTED. PATIENT PRESENTS NO SIGNS OF PAIN OR DISCOMFORT. PATIENT SKIN KEPT CLEAN, WARM AND DRY TO TOUCH. IV ACCESS INTACT AND PATENT. SAFETY PRECAUTIONS IN PLACE WITH BED IN THE LOWEST POSITION, BED LOCKED, BILATERAL SIDE RAILS UP, AND CALL LIGHT WITHIN EASY REACH OF THE PATIENT. WILL ENDORSE PLAN OF CARE TO UPCOMING NURSE.
--- NOTE | 2019-09-26 19:46 | NUR ---
RN NOTES RECEIVED PATIENT IN BED, AWAKE, ALERT AND ORIENTED X 1-2. BREATHING EVEN AND UNLABORED ON 4L NC. NO SIGNS OF ACUTE RESPIRATORY DISTRESS, NO ACUTE PAIN NOTED AT THIS TIME. IV ON L WRIST 22G ITS CLEAN DRY AND INTACT. SHOWS NO SIGNS INFILTRATION, NO REDNESS. SAFETY PRECAUTIONS IN PLACE. BED IN LOWEST POSITION, LOCKED, AND CALL LIGHT KEPT WITHIN EASY REACH. ASPIRATION PRECAUTION EMPHASIZED. WILL CONTINUE TO MONITOR ACCORDINGLY.
[2019-09-26 20:00] VITALS: BP 98/56
[2019-09-26 20:39] VITALS: BP 98/56
--- NOTE | 2019-09-27 06:23 | NUR ---
RN NOTES ALL NEEDS ATTENDED AND MET, ABLE TO REST AND SLEPT AT INTERVALS, REPOSITIONED FOR COMFORT. KEPT CLEAN WARM DRY AND COMFORTABLE, CALL LIGHT WITHIN EASY REACH. ASPIRATION PRECAUTION EMPHASIZED, SAFETY MEASURES IN PLACE. ALL NEEDS ANTICIPATED, WILL ENDORSE TO AM NURSE FOR CONTINUITY OF CARE.
[2019-09-27 07:29] LABS: BASOPHILS % (AUTO) 0.8 % (0.0-2.0); CALCIUM, SERUM 8.6 mg/dL (8.5-10.1); CREATININE 1.3 mg/dL (0.6-1.3); EOSINOPHILS % (AUTO) 7.3 % (0.0-6.0); HEMATOCRIT 26 % (33-45); HEMOGLOBIN 8.3 g/dL (11.5-14.8); LYMPHOCYTES % (AUTO) 16.8 % (20.0-44.0); MAGNESIUM 2.2 mg/dL (1.8-2.4); MEAN CORPUSCULAR HGB CONC 32 g/dl (31.0-36.0); MEAN CORPUSCULAR VOLUME 90 fL (82-100); MONOCYTES # (AUTO) 0.5 /CMM (0.1-1.30); MONOCYTES % (AUTO) 8.4 % (2.0-12.0); NEUTROPHILS # (AUTO) 3.9 /CMM (1.8-8.9); NEUTROPHILS % (AUTO) 66.7 % (43.0-81.0); PHOSPHORUS 3.5 mg/dL (2.5-4.9); PLATELET COUNT (AUTO) 272 /CMM (150-450); POTASSIUM 3.8 mmol/L (3.5-5.1); RED BLOOD CELL COUNT(AUTO) 2.86 MIL/uL (4.0-5.2); WHITE BLOOD COUNT (AUTO) 5.8 K/uL (4.3-11.0)
[2019-09-27 08:00] VITALS: BP 99/60
--- NOTE | 2019-09-27 08:00 | NUR ---
rn notes received patient in the bed a/o x1/2 , Afghan speaker, v/s stable, no acute respiratory distress, v/s wnl. patient refused pain, no acute respiratory distress, med compline, iv access on left hand intact. patient turn and reposition self in the bed. call light within to reach. continued monitoring.
[2019-09-27] MEDS: ENSURE ENLIVE 237 ML LIQUID (VANILLA) PO SCH ×4 (08:22→16:58)
[2019-09-27] MEDS: DOCUSATE SODIUM 100 MG CAPSULE PO SCH ×2 (09:19→16:06)
[2019-09-27] MEDS: PANTOPRAZOLE 40 MG VIAL IV SCH ×2 (09:19→21:24)
--- NOTE | 2019-09-27 11:56 | NUR ---
rn notes patient going to transfer acute to acute hospital for high acuity care for procedure, get excepted [facility].
[2019-09-27 15:54] VITALS: BP 107/65
[2019-09-27] MEDS: CEFEPIME 2 GM in IV D5W 100 ML IV SCH (16:06)
[2019-09-27] MEDS: LEVOFLOXACIN (500MG) 500 MG TABLET PO SCH (16:06)
--- NOTE | 2019-09-27 18:20 | NUR ---
rn notes Patient stable still waiting for bed [facility] [address], administered scheduled medication, patient's daughter sign acute transfer form TO co-[facility] co-worker Desiree. endorsed oncoming nurse follow plan of care.
--- NOTE | 2019-09-27 19:25 | NUR ---
MS RN NOTES RECEIVED PT IN BED AWAKE AND ABLE TO MAKE NEEDS KNOWN. PT A/O X 1-2. RESPIRATIONS EVEN AND UNLABORED WITH NO S/S OF ACUTE DISTRESS OR SOB NOTED. NO COMPLAINTS OF PAIN AT THIS TIME. PT NOTED WITH IV ON L WRIST 22G PATENT AND INTACT AND SL. SAFETY MEASURES IN PLACE WITH BED IN LOWEST LOCKED POSITION WITH SIDE RAILS UP X2. CALL LIGHT WITHIN REACH. WILL CONTINUE TO MONITOR.
[2019-09-27 20:00] VITALS: BP 94/55
--- NOTE | 2019-09-28 07:18 | NUR ---
MS RN NOTES PATIENT IN BED ALERT ORIENTED X 2. NO ACUTE DISTRESS NOTED. BREATHING UNLABORED. NO SOB NOTED. IV ACCESS PATENT AND INTACT, NO REDNESS, NO SWELLING NOTED. SAFETY MEASURES IN PLACE. CALL LIGHT WITHIN REACH. WILL CONTINUE TO MONITOR ACCORDINGLY.
--- NOTE | 2019-09-28 07:33 | NUR ---
MS RN NOTES PT IN BED AWAKE AND ABLE TO MAKE NEEDS KNOWN. PT A/O X 1-2. RESPIRATIONS EVEN AND UNLABORED WITH NO S/S OF ACUTE DISTRESS OR SOB NOTED THROUGHOUT SHIFT. NO COMPLAINTS OF PAIN AT THIS TIME. PT KEPT CLEAN, DRY, AND COMFORTABLE. PT NOTED WITH IV ON L WRIST 22G PATENT AND INTACT AND SL. SAFETY MEASURES IN PLACE WITH BED IN LOWEST LOCKED POSITION WITH SIDE RAILS UP X2. CALL LIGHT WITHIN REACH. WILL ENDORSE TO ONCOMING NURSE FOR JOSIE.
[2019-09-28] MEDS: ENSURE ENLIVE 237 ML LIQUID (VANILLA) PO SCH ×3 (07:49→17:43)
[2019-09-28 08:00] VITALS: BP 109/65
[2019-09-28 08:16] LABS: BASOPHILS % (AUTO) 0.7 % (0.0-2.0); HEMATOCRIT 28 % (33-45); HEMOGLOBIN 8.9 g/dL (11.5-14.8); LYMPHOCYTES # (AUTO) 1.2 /CMM (0.8-4.8); LYMPHOCYTES % (AUTO) 19.4 % (20.0-44.0); MEAN CORPUSCULAR HGB CONC 32 g/dl (31.0-36.0); MEAN CORPUSCULAR VOLUME 90 fL (82-100); MONOCYTES # (AUTO) 0.4 /CMM (0.1-1.30); MONOCYTES % (AUTO) 6.9 % (2.0-12.0); NEUTROPHILS # (AUTO) 3.9 /CMM (1.8-8.9); PLATELET COUNT (AUTO) 263 /CMM (150-450); RED BLOOD CELL COUNT(AUTO) 3.09 MIL/uL (4.0-5.2)
[2019-09-28 08:28] LABS: CALCIUM, SERUM 9.4 mg/dL (8.5-10.1); CREATININE 1.1 mg/dL (0.6-1.3); MAGNESIUM 2.2 mg/dL (1.8-2.4); PHOSPHORUS 3.8 mg/dL (2.5-4.9); POTASSIUM 4.5 mmol/L (3.5-5.1)
[2019-09-28] MEDS: DOCUSATE SODIUM 100 MG CAPSULE PO SCH ×2 (08:42→17:43)
[2019-09-28] MEDS: PANTOPRAZOLE 40 MG VIAL IV SCH ×2 (08:42→21:51)
[2019-09-28] MEDS: LEVOFLOXACIN (500MG) 500 MG TABLET PO SCH (15:09)
[2019-09-28] MEDS: CEFEPIME 2 GM in IV D5W 100 ML IV SCH (15:09)
[2019-09-28 16:00] VITALS: BP 108/63
--- NOTE | 2019-09-28 17:08 | NUR ---
MS RN NOTES RECEIVED NEW ORDERS FROM POLI GUTIÉRREZ CHIEF INVESTMENT OFFICER TO DISCONTINUE CLEAR LIQUID DIET CHANGE TO SOFT DIET CARDIAC, ORDERS CLARIFIED AND READ BACK WITH CHIEF INVESTMENT OFFICER, NOTED AND CARRIED OUT.
--- NOTE | 2019-09-28 19:00 | NUR ---
MS RN NOTES PATIENT IN BED ALERT ORIENTED X 2. NO ACUTE DISTRESS NOTED. BREATHING UNLABORED. NO SOB NOTED. IV ACCESS PATENT AND INTACT, NO REDNESS, NO SWELLING NOTED. NEEDS ATTENDED AND ANTICIPATED. KEPT COMFORTABLE. TOLERATED CURRENT DIET WELL. SAFETY MEASURES IN PLACE. CALL LIGHT WITHIN REACH. WILL ENDORSE TO NIGHT FOR CONTINUITY OF CARE.
[2019-09-28 20:00] VITALS: BP 123/63
--- NOTE | 2019-09-29 07:15 | NUR ---
MS RN NOTES RECEIVED PATIENT IN BED ALERT ORIENTED X 2. NO ACUTE DISTRESS NOTED. BREATHING UNLABORED. NO SOB NOTED. NO IV ACCESS AT THIS TIME, REFUSED NEW IV LINE INSERTION AT THIS TIME, WILL OFFER AGAIN LATER. SAFETY MEASURES IN PLACE. CALL LIGHT WITHIN REACH. WILL CONTINUE TO MONITOR ACCORDINGLY.
[2019-09-29] MEDS: ENSURE ENLIVE 237 ML LIQUID (VANILLA) PO SCH ×2 (07:57→11:56)
[2019-09-29 08:00] VITALS: BP 133/75
--- NOTE | 2019-09-29 08:09 | NUR ---
MS RN NOTES PT IN BED AWAKE AND ABLE TO MAKE NEEDS KNOWN. PT A/O X 1-2. RESPIRATIONS EVEN AND UNLABORED WITH NO S/S OF ACUTE DISTRESS OR SOB NOTED THROUGHOUT SHIFT. NO COMPLAINTS OF PAIN AT THIS TIME. PT REMOVED IV LINE. PT REFUSED NEW INSERT AT THIS TIME. SAFETY MEASURES IN PLACE WITH BED IN LOWEST LOCKED POSITION WITH SIDE RAILS UP X2. CALL LIGHT WITHIN REACH. WILL ENDORSE TO ONCOMING NURSE FOR JOSIE.
[2019-09-29] MEDS: DOCUSATE SODIUM 100 MG CAPSULE PO SCH (08:34)
[2019-09-29] MEDS: PANTOPRAZOLE 40 MG VIAL IV SCH (09:20)
--- NOTE | 2019-09-29 09:20 | NUR ---
MS OSORIO NOTES PATIENT REFUSED NEW IV LINE INSERTION AND PROTONIX IV GIVEN Addendum: 09/29/19 at 1154 by IRENE GOMEZ RN ADDENDUM REFUSED DESPITE OF EXPLANATION OF RISKS AND BENEFITS.
--- NOTE | 2019-09-29 09:36 | NUR ---
MS RN NOTES NOTIFIED TREASURY ASSOCIATE POLI GUTIÉRREZ REGARDING PATIENT REFUSED NEW IV LINE INSERTION WITH NEW ORDERS MADE. NOTED AND CARRIED OUT
--- NOTE | 2019-09-29 09:40 | NUR ---
MS RN NOTES BALE SEWER TEJAL FINN AWARE OF MIDLINE INSERTION
[2019-09-29 11:35] LABS: BASOPHILS % (AUTO) 0.6 % (0.0-2.0); HEMATOCRIT 28 % (33-45); HEMOGLOBIN 8.9 g/dL (11.5-14.8); LYMPHOCYTES # (AUTO) 0.9 /CMM (0.8-4.8); LYMPHOCYTES % (AUTO) 13.4 % (20.0-44.0); MEAN CORPUSCULAR HGB CONC 32 g/dl (31.0-36.0); MEAN CORPUSCULAR VOLUME 91 fL (82-100); MONOCYTES # (AUTO) 0.6 /CMM (0.1-1.30); MONOCYTES % (AUTO) 8.8 % (2.0-12.0); NEUTROPHILS # (AUTO) 4.7 /CMM (1.8-8.9); NEUTROPHILS % (AUTO) 72.2 % (43.0-81.0); PLATELET COUNT (AUTO) 257 /CMM (150-450); RED BLOOD CELL COUNT(AUTO) 3.11 MIL/uL (4.0-5.2); WHITE BLOOD COUNT (AUTO) 6.5 K/uL (4.3-11.0)
[2019-09-29 11:51] LABS: CALCIUM, SERUM 9.7 mg/dL (8.5-10.1); PHOSPHORUS 3.9 mg/dL (2.5-4.9); POTASSIUM 4.3 mmol/L (3.5-5.1)
[2019-09-29] MEDS: LEVOFLOXACIN (500MG) 500 MG TABLET PO SCH (14:36)
--- NOTE | 2019-09-29 15:10 | NUR ---
MS RN NOTES MIDLINE G 18 INSERTED ON RIGHT UPPER ARM BY PICC LINE NURSE FIORELLA, SECURED WITH TRANSPARENT DRESSING PATENT AND INTACT, NO BLEEDING , NO REDNESS, NO SWELLING NOTED.PATIENT TOLERATED WELL.
[2019-09-29] MEDS: CEFEPIME 2 GM in IV D5W 100 ML IV SCH (15:19)
--- NOTE | 2019-09-29 16:10 | NUR ---
MS RACETRACK STEWARD NOTES PATIENT DISCHARGE TO [facility] FOR HIGHER LEVEL OF CARE WITH STABLE VITAL SIGNS REPORT GIVEN TO GERALD OSORIO, ALERT ORIENTED X 2, NO ACUTE DISTRESS NOTED, BREATHING UNLABORED, NO SOB NOTED. NO FACIAL GRIMACING NOTED. IV ACCESS ON RIGHT UPPER ARM PATENT AND INTACT, NO REDNESS, NO SWELLING, NO BLEEDING NOTED. DISCHARGE INSTRUCTIONS GIVEN TO GERALD OSORIO. ALL DISCHARGE INSTRUCTIONS GIVEN TO EMT PERSONNEL INCLUDING CD TO BE HANDED OVER TO DENIA QUILES RN. ALL BELONGINGS ACCOUNTED FOR. SKIN IS INTACT. PICKED UP [facility]IA [facility] IN STABLE CONDITION, SINUS RHYTHM ON MONITOR.
== END 2019-09-29 16:10 | disposition short-term general hospital (02) | DRG 280 ==
LOC: ER 07:18 → TELE 10:30 → TELE-TD 16:54 → ICUOV 17:06 → TELE1 09-20 15:46 → TELE 09-20 17:30 → MED 09-22 08:35
PROVIDERS: ADMIT Hospitalist; ATTEND Registered Nurse
PROC: 30233N1 Transfusion of Nonautologous Red Blood Cells into Peripheral Vein, Percutaneous Approach (ICD-10-PCS; principal; 2019-09-19)
PROC: 05HB33Z Insertion of Infusion Device into Right Basilic Vein, Percutaneous Approach (ICD-10-PCS; 2019-09-29)
DX: I21.4 Non-ST elevation (NSTEMI) myocardial infarction (principal); I50.33 Acute on chronic diastolic (congestive) heart failure; N17.0 Acute kidney failure with tubular necrosis; J15.9 Unspecified bacterial pneumonia; I13.0 Hypertensive heart and chronic kidney disease with heart failure and stage 1 through stage 4 chronic kidney disease, or unspecified chronic kidney disease; J98.11 Atelectasis; K76.6 Portal hypertension; N39.0 Urinary tract infection, site not specified; K92.2 Gastrointestinal hemorrhage, unspecified; I25.10 Atherosclerotic heart disease of native coronary artery without angina pectoris; N18.9 Chronic kidney disease, unspecified; D63.1 Anemia in chronic kidney disease; Z95.5 Presence of coronary angioplasty implant and graft; Z66 Do not resuscitate; Z98.890 Other specified postprocedural states; E11.22 Type 2 diabetes mellitus with diabetic chronic kidney disease; E78.5 Hyperlipidemia, unspecified; F03.90 Unspecified dementia, unspecified severity, without behavioral disturbance, psychotic disturbance, mood disturbance, and anxiety; I27.20 Pulmonary hypertension, unspecified; K59.00 Constipation, unspecified; Z79.84 Long term (current) use of oral hypoglycemic drugs; Z79.899 Other long term (current) drug therapy; K44.9 Diaphragmatic hernia without obstruction or gangrene; N25.0 Renal osteodystrophy; B96.1 Klebsiella pneumoniae [K. pneumoniae] as the cause of diseases classified elsewhere; K55.20 Angiodysplasia of colon without hemorrhage; I08.0 Rheumatic disorders of both mitral and aortic valves
CPT/HCPCS: 36415; 36600; 71045-TC; 71250-TC; 75574; 80048-TC; 80053-TC; 80061-TC; 80076-TC; 81000-TC; 82272-TC; 82728-TC; 82803-TC; 82962-TC; 83540-TC; 83735-TC; 83880; 84100-TC; 84439-TC; 84443-TC; 84484-TC; 85025-TC; 85730-TC; 86850-TC; 86921-TC; 87081-TC; 87086-TC; 87186-TC; 93307-TC; 97110-TC; 97116-TC; 97530-TC; A4216; C9113; G0378; J0692; J0696; J1940; J2270; J2916; J3475; J3480; J3490; J7030; J7050; J7060; P9016-BL; Q9967